=== PATIENT | male | born 1955 ===

== ENCOUNTER 2024-02-14 16:21 | Inpatient (IN) | payer SELFPAY ==
[~2024-02-14] VITALS: Ht 175.3 cm; Wt 59.0 kg
[2024-02-14 18:05] VITALS: BP 137/76; PULSE 101; TEMP 98.8
--- NOTE | 2024-02-14 18:18 | NUR ---
PATIENT ARRIVED AWAKE ALERT AND ORIENTED AT APROX 1730. PATIENT DAUGHTER AT BEDSIDE. PATIENT ADMISSION INTAKE COMPLETED WITH [facility] QA LAB TECHNICIAN. PATIENT IS CURRENTLY HERE ON A 6MONTH VISA FROM [facility] THAT EXPIRES 04/20/24. PATINET DENEIS ANY DIGNOSES, OR HISTORY OF OXYGEN REQUIREMENT. PATIENT WAS SEEN IN ER ONE MONTH AGO FOR URINARY RETENTION BUT NEVER FOLLOWED UP OUTPATIENT WITH A UROLOGIST. PATIENTS DAUGHTER IS CONCERNED BECAUSE PATIENT HAS NO INSURANCE. AND IS CURIOUS IF PATIENT CAN TRANSFER TO SHE HEARD IT WAS MORE AFFORDABLE, I INFORMED HER I AM NOT AWARE OF THAT IS A POSSIBILITY AT THIS TIME. PATIENT TRANSFERED TO ROOM [address] DR GROVES INFORMED THIS RN AND HOUSE SUPERIVOR THAT HE IS GOING TO TRY AND R/O TB. PATIENT NOW IN OUR NEGATIVE PRESSURE ROOM AT THIS TIME. HIS DAUGHTER AT BEDSIDE. CALL LIGHT WITHIN REACH.
[2024-02-14] MEDS ORDERED: *Potassium Replacement Protocol MC SCH (18:30)
[2024-02-14] MEDS ORDERED: NS 1,000 ML IV SCH (18:45)
--- NOTE | 2024-02-14 18:45 | NUR ---
PATIENTS DAUGHTER TJ WAS TOLD AT HIS LAST ER VISIT THAT HE IS DIABETIC HOWEVER PATIENT TOLD HER "I DONT NEED THAT STUFF I FEEL FINE," AND THEREFOR NEVER PICKED UP HIS PERSCRIPTIONS. PATIENT HAS NOT TAKEN ANY MEDICATIONS.
[2024-02-14 19:36] VITALS: BP 119/67; PULSE 100; TEMP 99.9
[2024-02-14 19:46] LABS: HEMATOCRIT 38.8 % (42.0-52.0); HEMOGLOBIN 13.1 g/dl (13.5-18.0); MEAN CELL VOLUME 93 fl (80.0-100.0); MEAN CORPUSCULAR HEMOGLOBIN 31 pg (27-31); MEAN CORPUSCULAR HGB CONC 34 g/dl (33.0-37.0); MEAN PLATELET VOLUME 10.6 fl (7.4-10.4); PLATELET COUNT 204 K/mm3 (130-400); RED BLOOD COUNT 4.17 M/mm3 (4.20-5.60); REDCELL DISTRIBUTION WIDTH-CV 13.3 % (11.5-14.5)
[2024-02-14 19:49] LABS: CALCIUM 8.6 mg/dL (8.4-10.2); CREATININE, serum 0.94 mg/dL (0.72-1.25); POTASSIUM 3.9 mEq/L (3.5-4.5)
--- NOTE | 2024-02-14 20:00 | NUR ---
Pt alert and oriented, vss. Daughter at bedside to assist with cares for her father. Assessed and medicated per orders, denies any pain at this time. Indwelling urinary catheter to dependent drainage, yellow clear liquid. Low fall risk. Call light in reach. Airborne precautions folowed.
[2024-02-14 20:22] VITALS: TEMP 99.1
[2024-02-14] MEDS ORDERED: Potassium Bicarbonate/Citrate 20 MEQ Effervescent TAB PO ONE (20:45)
[2024-02-14 21:00] VITALS: BP_SYST 146
[2024-02-14] MEDS ORDERED: Dextrose (Glucose) 15 GM (4 x 3.75 GM) Chewable TABLET PACK PO PRN (21:15)
[2024-02-14] MEDS ORDERED: Glucagon 1 MG VIAL IM PRN (21:15)
[2024-02-14] MEDS ORDERED: Dextrose 50% Water 25 GM/50 ML SYRINGE IV PRN (21:15)
[2024-02-14] MEDS ORDERED: Insulin Lispro (HumaLOG) SQ SCH (21:46)
[2024-02-14 23:17] VITALS: BP 146/69; PULSE 105; TEMP 99.5
[2024-02-14] MEDS ORDERED: Doxycycline Monohydrate 100 MG CAP PO SCH (23:22)
[2024-02-15] VITALS (12 sets, daily range): BP systolic 103–146; BP diastolic 62–68; PULSE 65–108; TEMP 96.8–99.3
[2024-02-15] MEDS ORDERED: Heparin 5,000 UNITS/ML 1 ML VIAL SQ SCH
[2024-02-15 07:06] LABS: BASO # 0.1 K/mm3 (0.0-0.2); BASO % 0.6 % (0.0-2.0); EOS # 0.2 K/mm3 (0.0-0.7); EOS % 2.4 % (0.0-4.0); GRAN # 5.5 K/mm3 (1.4-6.5); GRAN % 62.9 % (42.2-75.2); HEMATOCRIT 39.1 % (42.0-52.0); HEMOGLOBIN 12.9 g/dl (13.5-18.0); LYMPH # 1.9 K/mm3 (1.2-3.4); LYMPH % 21.3 % (20.0-51.0); MEAN CORPUSCULAR HEMOGLOBIN 32 pg (27-31); MEAN CORPUSCULAR HGB CONC 33 g/dl (33.0-37.0); MEAN PLATELET VOLUME 9.5 fl (7.4-10.4); MONO # 1.1 K/mm3 (0.1-0.6); MONO % 12.5 % (1.7-9.3); PLATELET COUNT 274 K/mm3 (130-400); RED BLOOD COUNT 3.99 M/mm3 (4.20-5.60); REDCELL DISTRIBUTION WIDTH-CV 13.3 % (11.5-14.5)
[2024-02-15 07:12] LABS: MEAN CELL VOLUME 98 fl (80.0-100.0)
--- NOTE | 2024-02-15 07:25 | NUR ---
PULM AND UROLOGY CONSULTS CALLED. PATIENT DAUGHTER AT BEDSIDE AND WILL BE HERE FOR THE REMAINDER OF THE DAY.
[2024-02-15] MEDS ORDERED: Insulin Lispro (HumaLOG) SQ SCH ×2 (08:00)
--- NOTE | 2024-02-15 10:19 | NUR ---
Product Management Manager met with patient's daughter, Purnima (ph#[phone]) in the hallway as patient is on airborne isolation for TB rule out. Patient does not speak israeli and only speaks Samoan. Patient's daughter does speak Bruneian. Purnima stated [place] [facility]. Patient and his , Salinas (ph#[phone]) live there with Purnima, her Tiff and their six month old baby. Patient does not have a primary care provider and does not have insurance coverage. Purnima is very concerned with the hospital bill and SW contacted Arnol, Financial Counselor to request she reach out. Purnima advised patient is normally healthy and independent with ADLS. Patient does not have DPOA-HC. Discharge Plan: Home, pending further recommendations, TB rule out
[2024-02-16] VITALS (10 sets, daily range): BP systolic 103–151; BP diastolic 58–82; PULSE 88–103; TEMP 98.4–100
[2024-02-16 06:50] LABS: BASO # 0.1 K/mm3 (0.0-0.2); BASO % 0.8 % (0.0-2.0); EOS # 0.3 K/mm3 (0.0-0.7); EOS % 4.5 % (0.0-4.0); GRAN # 4.2 K/mm3 (1.4-6.5); GRAN % 56.9 % (42.2-75.2); HEMATOCRIT 38.5 % (42.0-52.0); LYMPH # 1.7 K/mm3 (1.2-3.4); LYMPH % 23.7 % (20.0-51.0); MEAN CELL VOLUME 95 fl (80.0-100.0); MEAN CORPUSCULAR HEMOGLOBIN 32 pg (27-31); MEAN CORPUSCULAR HGB CONC 34 g/dl (33.0-37.0); MEAN PLATELET VOLUME 9.4 fl (7.4-10.4); MONO % 13.7 % (1.7-9.3); PLATELET COUNT 274 K/mm3 (130-400); RED BLOOD COUNT 4.05 M/mm3 (4.20-5.60); REDCELL DISTRIBUTION WIDTH-CV 13.1 % (11.5-14.5)
--- NOTE | 2024-02-16 07:05 | NUR ---
awake resting in bed, bedside shift report received from AWAIS webb, daughter at bedside
--- NOTE | 2024-02-16 07:25 | NUR ---
PT ALERT AND ORIENTED, DAUGHTER AT BEDSIDE. VERY PLEASANT AND COOPERATIVE, SMILES A LOT. NO PAIN, ASSESSED AND MEDICATED PER ORDERS. UP AD LISA. CALL LIGHT WITHIN REACH.
--- NOTE | 2024-02-16 08:45 | NUR ---
resting in bed, full assessment completed see interventions for further info, daughter at bedside
--- NOTE | 2024-02-16 10:11 | NUR ---
up and about in room independently, denies needs
--- NOTE | 2024-02-16 11:09 | NUR ---
Dr Daley and care team in to see patient
--- NOTE | 2024-02-16 11:46 | NUR ---
sitting up in bed and continues to deny needs, IV med infusing
--- NOTE | 2024-02-16 12:45 | NUR ---
bedside shift report given to AWAIS Puga
--- NOTE | 2024-02-16 12:59 | NUR ---
Pt. ambulating in room upon entry w/ daughter at bedside. Introduced myself and AWAIS Puga, as pt's nurses for the remainder of the shift. Performed head-to-toe assessment. All findings WNL. Pt. has no complaints of pain or further needs at this time. Call light within reach.
--- NOTE | 2024-02-16 20:30 | NUR ---
CASSANDRA Thurman assumed care of patient at 1300 from [facility]. This nurse, Cuca's preceptor, agrees with assessment and notes. Droplet precautions in place for r/o TB. Patient independent in room. Daughter at bedside to translate. Denies pain or needs during this shift. Bedside report given to oncoming nurse Stacey Cordero RN by CASSANDRA Thurman.
[2024-02-16 20:34] LABS: TB GOLD INTERPRETATION Positive (Negative)
--- NOTE | 2024-02-16 21:00 | NUR ---
UPON SHIFT ASSESSMENT, PATIENT WAS IN BED AND AXOX 4 WITH DAUGHTER BEDSIDE. PATIENT LUNG SOUNDS WERE DIMINSHED IN ALL QUADS. PATIENT DENIES CHEST PAIN, SOA OR HEMOPTYSIS. PATIENT STILL UNABLE TO PRODUCE SPUTUM SAMPLE. VS ARE WNL. TELE IS CURRENTLY NS AT 80 BPM.
[2024-02-17] VITALS (13 sets, daily range): BP systolic 119–145; BP diastolic 65–82; PULSE 02–113; TEMP 97.6–99.1
--- NOTE | 2024-02-17 02:44 | NUR ---
CALL PLACED TO [facility]PITAL[facility]. QUANTIFERON GOLD RESULTED POSITIVE. TORB TO PLACE NPO STATUS GIVEN PENDING POSSIBLE BRONCHOSCOPY WITH WASH.
--- NOTE | 2024-02-17 03:54 | NUR ---
CALL PLACED TO HOSPITALIST ROHIT. PATIENT TRENDING HYPOTENSIVE, TACHYPENIC, TACHYCARDIC AND FEBRILE 102 TEMP. PATIENT IS AXO X 4. TORB FOR TYLENOL AND IBUPROFEN GIVEN. BENADRYL ADMINISTERED FOR RASH ON BLLE.
--- NOTE | 2024-02-17 05:54 | NUR ---
PATIENT EDUCATION PROVIDED TO FAMILY MEMBER ON IMPORTANCE ON GETING ALL THOSE INCONTACT WITH PATIENT TB TESTED.
[2024-02-17 06:35] LABS: BASO # 0.1 K/mm3 (0.0-0.2); BASO % 0.9 % (0.0-2.0); EOS # 0.3 K/mm3 (0.0-0.7); EOS % 4.4 % (0.0-4.0); GRAN # 4.8 K/mm3 (1.4-6.5); GRAN % 61.5 % (42.2-75.2); HEMATOCRIT 39.6 % (42.0-52.0); HEMOGLOBIN 13.2 g/dl (13.5-18.0); LYMPH # 1.7 K/mm3 (1.2-3.4); LYMPH % 21.6 % (20.0-51.0); MEAN CELL VOLUME 97 fl (80.0-100.0); MEAN CORPUSCULAR HEMOGLOBIN 32 pg (27-31); MEAN CORPUSCULAR HGB CONC 33 g/dl (33.0-37.0); MEAN PLATELET VOLUME 9.6 fl (7.4-10.4); MONO # 0.9 K/mm3 (0.1-0.6); MONO % 11.2 % (1.7-9.3); PLATELET COUNT 291 K/mm3 (130-400); RED BLOOD COUNT 4.09 M/mm3 (4.20-5.60); REDCELL DISTRIBUTION WIDTH-CV 13.2 % (11.5-14.5)
[2024-02-17 06:40] LABS: CALCIUM 8.7 mg/dL (8.4-10.2); CREATININE, serum 0.96 mg/dL (0.72-1.25); POTASSIUM 4.1 mEq/L (3.5-4.5)
--- NOTE | 2024-02-17 09:00 | NUR ---
PATIENT IVF DISCONTONUED AND YU REMOVED. PATINET TOLERATED WELL. CALL LIGHT WITHIN REACH, PATIENTS DAUGHTER AT BEDSIDE. PATIENT AND CASEER EDUCATED THAT PATIENT IS ABLE TO EAT AND WILL BE NPO AT MIDNIGHT FOR PULM PROCEDURE TOMORROW.
--- NOTE | 2024-02-17 10:43 | NUR ---
LAB NOTIFIED PHYSICIAN PLACED 2 MORE LAB ORDERS TO PATIENT AND LAB CAN USE BLOOD DRAWN FROM AM LABS. LAB VERBALIZED UNDERSTANDING OF THIS.
[2024-02-17 12:35] LABS: HIV 1/2 Antibodies Non-Reactive; HIV-1p24 Antigen Non-Reactive
--- NOTE | 2024-02-17 16:00 | NUR ---
PATIENT HAS VOIDED MULTIPLE TIMES PER PATIENT AND HIS DAUGHTER WITH NO ISSUES.
--- NOTE | 2024-02-17 17:53 | NUR ---
CONSENT SIGNED AND ON THE CHART
--- NOTE | 2024-02-17 20:40 | NUR ---
TELE GROUT SEWER LINE REPAIRER CALLED AND STATED PT'S HR IN 140'S. I CHECKED ON PT. PT UP TO THE RESTROOM. HR RETURNED TO NORMAL UPON RETURNING TO BED.
[2024-02-18] VITALS (17 sets, daily range): BP systolic 106–126; BP diastolic 63–89; PULSE 79–104; TEMP 98.1–98.9
[2024-02-18] MEDS ORDERED: LR 1,000 ML IV SCH ×2 (01:00→05:00)
[2024-02-18 06:19] LABS: BASO # 0.1 K/mm3 (0.0-0.2); BASO % 0.8 % (0.0-2.0); EOS # 0.4 K/mm3 (0.0-0.7); EOS % 4.8 % (0.0-4.0); GRAN # 4.1 K/mm3 (1.4-6.5); GRAN % 56.1 % (42.2-75.2); HEMATOCRIT 38.7 % (42.0-52.0); HEMOGLOBIN 13.2 g/dl (13.5-18.0); LYMPH # 1.9 K/mm3 (1.2-3.4); LYMPH % 26.3 % (20.0-51.0); MEAN CELL VOLUME 93 fl (80.0-100.0); MEAN CORPUSCULAR HEMOGLOBIN 32 pg (27-31); MEAN CORPUSCULAR HGB CONC 34 g/dl (33.0-37.0); MEAN PLATELET VOLUME 9.3 fl (7.4-10.4); MONO # 0.9 K/mm3 (0.1-0.6); MONO % 11.6 % (1.7-9.3); PLATELET COUNT 289 K/mm3 (130-400); RED BLOOD COUNT 4.15 M/mm3 (4.20-5.60)
[2024-02-18 06:43] LABS: CALCIUM 8.8 mg/dL (8.4-10.2)
--- NOTE | 2024-02-18 07:19 | NUR ---
PATINET AWAKE AND ALERT, SITTING UP IN BED. PATIENTS DAUGHTER AT BEDSIDE. PATIENT DENIES ANY NEEDS COMPLAINTS OR PAIN. PATIENT STATED HE HAS VOIDED MANY TIMES OVER NIGTH WITHOUT ISSUE AND FEELS NO DISTENTION OR DISCOMFORT. PATIENTS PRE OP FLUIDS HUNG. SURGICAL CONSENT IS SIGNED AND ON THE CHART. PATIENTS CALL LIGHT WITHIN REACH
[2024-02-18] MEDS ORDERED: Lidocaine PF 1% (10 MG/ML) 5 ML VIAL ONE (08:01)
--- NOTE | 2024-02-18 08:14 | NUR ---
PATIENT TAKEN TO PRE OP
[2024-02-18] MEDS ORDERED: Lidocaine 2% Viscous 15 ML UNIT DOSE MM ONE (08:28)
[2024-02-18] MEDS ORDERED: Lidocaine PF 1% (10 MG/ML) 5 ML VIAL MM ONE (08:28)
--- NOTE | 2024-02-18 08:45 | NUR ---
PATIENT ARIVED FROM PACU AWAKE ALERT AND ORIENTED. VSS. PATIENT DENIES ANY NEEDS OR COMPLAITNS AT THIS TIME. POST OP VITALS INITIATED. PATIENTS DAUGHTER AT BEDSIDE .
[2024-02-18] MEDS ORDERED: rifAMPin 300 MG CAPSULE PO SCH (09:00)
[2024-02-18] MEDS ORDERED: Isoniazid 100 MG TAB PO SCH (09:00)
[2024-02-18] MEDS ORDERED: Pyrazinamide 500 MG TAB PO SCH (09:00)
--- NOTE | 2024-02-18 11:30 | NUR ---
TJ GIVEN NEW TB MEDICATIONS. PATIENT EDUCATION ON POSSIBLE SIDE EFFECTS BY MD AND MYSELF. PATIENT AWARE AND AGREEABLE TO TREATMENT. PATEINT STILL OCNTINUES TO HAVE GOOD URINARY OUTPUT WITH NO COMOPLAINTS. CALL LIGHT WITHIN REACH. POST OP VITALS COMPLETED.
--- NOTE | 2024-02-18 18:11 | NUR ---
Patient in room 341 from room 359. Daughter at the bedside. A&Ox4. VSS. IV CDI. Denies pain and discomfort. Airborne precautions in place. In a negative pressure room. Call light within reach
[2024-02-19] VITALS (12 sets, daily range): BP systolic 101–150; BP diastolic 55–88; PULSE 84–102; TEMP 97.5–98.3
[2024-02-19 05:00] LABS: BASO # 0.1 K/mm3 (0.0-0.2); BASO % 0.8 % (0.0-2.0); EOS # 0.3 K/mm3 (0.0-0.7); EOS % 2.9 % (0.0-4.0); GRAN % 68.8 % (42.2-75.2); HEMATOCRIT 38.9 % (42.0-52.0); HEMOGLOBIN 13.4 g/dl (13.5-18.0); LYMPH # 1.6 K/mm3 (1.2-3.4); LYMPH % 16.1 % (20.0-51.0); MEAN CELL VOLUME 93 fl (80.0-100.0); MEAN CORPUSCULAR HEMOGLOBIN 32 pg (27-31); MEAN CORPUSCULAR HGB CONC 34 g/dl (33.0-37.0); MEAN PLATELET VOLUME 9.2 fl (7.4-10.4); MONO # 1.1 K/mm3 (0.1-0.6); PLATELET COUNT 266 K/mm3 (130-400); RED BLOOD COUNT 4.19 M/mm3 (4.20-5.60); REDCELL DISTRIBUTION WIDTH-CV 13.1 % (11.5-14.5)
[2024-02-19 05:17] LABS: CALCIUM 9.2 mg/dL (8.4-10.2); CREATININE, serum 1.01 mg/dL (0.72-1.25); POTASSIUM 4.6 mEq/L (3.5-4.5)
[2024-02-19 08:46] LABS: ALBUMIN 3.9 g/dL (3.4-4.8); BILIRUBIN,TOTAL 1.6 mg/dL (0.2-1.2); TOTAL PROTEIN 8.3 g/dl (6.2-8.1)
--- NOTE | 2024-02-19 09:00 | NUR ---
Patient resting in bed, daughter at bedside. Pt, alert and oriented, denies any pain or discomfort. Pt ambulates with no difficulties to restroom and come back to bed. At RA, non productive cough. Assessment completed, meds given. No other needs at this time. Call light within reach.
[2024-02-20] VITALS (13 sets, daily range): BP systolic 112–149; BP diastolic 72–84; PULSE 84–100; TEMP 98–98.3
--- NOTE | 2024-02-20 09:00 | NUR ---
Patient is sitting up on bed, getting his breakfast. A&O x 4, Daughter at bedside. States no pain or discomfort. At RA, some sporadic cough with no production. Assessment completed, meds given. No further needs at this time. Call light within reach.
[2024-02-21] VITALS (10 sets, daily range): BP systolic 107–138; BP diastolic 70–81; PULSE 91–104; TEMP 98.2–98.4
--- NOTE | 2024-02-21 06:25 | NUR ---
ASSESSMENT COMPLETE FOR SSIS DEVELOPER. THIS MORNING WHEN I WENT IN TO GIVE PT'S HIS 0700HRS MEDS. PT'S DAUGHTER STATED HE WAS URINATING EVERY HOUR. I ASKED PT'S DAUGHTER TO ASK PT IF HE WAS HAVING PAIN OR BLEEDING WITH URINATION. PT STATED IT HURTS "INSIDE" AND "THE TIP" AND THAT HIS URINE WAS PINK SOMETIMES AND WAS RED SOMETIMES. I ASKED PT'S DAUGHTER TO ASK PT TO URINATE IN THE URINAL NEXT TIME AND SAVE IT FOR STAFF TO EVALUATE. PT DENIED CHEST PAIN, PALPITATIONS, SOB, N,V OR DIZZINESS. PT DID COMPLAIN OF SOME DIARRHEA AT TIMES WELL. WILL PASS INFORMATION ON. CALL LIGHT WITHIN REACH.
--- NOTE | 2024-02-21 07:00 | NUR ---
BEDSIDE REPORT GIVEN AT THIS TIME.
--- NOTE | 2024-02-21 09:30 | NUR ---
SHIFT ASSESSMENT COMPLETED AT THIS TIME. NO PAIN REPORTED. PT A&OX4. MORNING MEDICATIONS ADMINSISTERED AT THIS TIME. PT VOICES COMPLAINTS OF BURNING WHILE URINATING. CLEAN URINAL PROVIDED WITH UA CUP. BLADDER SCAN COMPLETED AT THIS TIME. 138MLS VISUALIZED. NO OTHER COMPLAINTS AT THIS TIME. CALL LIGHT WITHIN REACH.
[2024-02-21 10:11] LABS: ALBUMIN 4.2 g/dL (3.4-4.8); BILIRUBIN,TOTAL 2.5 mg/dL (0.2-1.2); CALCIUM 9.2 mg/dL (8.4-10.2); CREATININE, serum 1.21 mg/dL (0.72-1.25); POTASSIUM 4.6 mEq/L (3.5-4.5); TOTAL PROTEIN 9.1 g/dl (6.2-8.1)
[2024-02-21 10:48] LABS: URINE APPEARANCE CLEAR (CLEAR/HAZY); URINE BLOOD TRACE (NEGATIVE); URINE COLOR Dark Yellow (YELLOW); URINE GLUCOSE 3+ (NEGATIVE); URINE KETONE 1+ (NEGATIVE); URINE NITRATE POSITIVE (NEGATIVE); URINE PROTEIN(semi-quant) NEGATIVE (NEGATIVE); URINE UROBILINOGEN 0.2 E.U/dL (0.2-1.0)
[2024-02-21 11:29] LABS: COLLECTION METHOD CLEAN CATCH
--- NOTE | 2024-02-21 11:43 | NUR ---
URINAL PROVIDED TO MONITOR URINE OUTPUT MORE ACCURATLEY. PT VOIDS FREQUENTLY, PER DAUGHTER WHO EMPTIES PT'S URINAL, PT VOIDS LESS THAN 100ML EVERY HOUR AND VOICES CONCERNS OF PAINFUL URINATION. THIS NURSE CALLED AND UPDATED UROLOGY PA, (CLEMENTINE BROWN) AND HE STATED HE WOULD CONSULT WITH DR. GRAFF AND WOULD CALL BACK WITH AN UPDATE.
--- NOTE | 2024-02-21 13:55 | NUR ---
REPORT GIVEN TO AWAIS GRANT. PT TRANSPORTED TO ROOM 359 AT THIS TIME.
--- NOTE | 2024-02-21 14:30 | NUR ---
Pt moved to medical floor from surgical unit by bed. Report received from AWAIS Puga and CASSANDRA Lazar. Pt in negative pressure isolation room at this time. Call light within reach.
--- NOTE | 2024-02-21 15:18 | NUR ---
quarry worker was notified by interdisciplinary clinical team that patient may discharge today. Patient's nurse reports patient would need to be set up at the health department for the INH treatment for TB. DEMARCO contacted [facility] whom expressed if patient lives on [facility] then [facility] would need to provide those services. DEMARCO contacted [facility] whom explained if patient is not a solider or a beneficiary patient would not be able to get services at their facility they would need to go to [facility]. DEMARCO called [facility] again whom then expressed they dont treat for TB anymore there. DEMARCO contacted patient's daughter to determine if patient has a ID to receive the services through the [facility]. Patient's daughter reports patient lives in [place], [place]. DEMARCO explained patient would need to get medications for TB upon discharge to his home, so she will work on setting up the referral to the health department. Patient's daughter reported patient will be moving with her to [facility] in approximately a month. DEMARCO contacted the [facility] and spoke with Vivien, P# [phone]. Vivien requested information on patient. DEMARCO expressed she would fax this to her at [phone]. Vivien explained she will need discharge orders and a prescription for the medications upon discharge. Vivien explained to ensure patient knows that the health department will be calling him to set up a time to meet at his house. Vivien explained they would be bringing the patient his medication Wednesday through Wednesday at his home. DEMARCO explained patient will be moving out of state in March, Vivien explained they would arrange for him to finalize treatment out of state when that time comes. DEMARCO was notified patient will not be discharging today. DEMARCO contacted patient's daughter to obtain the full address of patient. Patient's daughter explained she was working on obtaining this information and would call the social work program coordinator back. DEMARCO contacted Vivien at the [facility] to notify that patient will not discharge today. Vivien explained she has been in contact with the daughter and is waiting for the address. DEMARCO explained if she receives it first, she will call her. DEMARCO faxed the requested information to Vivien at the [facility]. DEMARCO will continue to follow patient's care. If patient does not need the INH treatment, SW will call [facility] health department to cancel. Discharge plan: Home
[2024-02-22] VITALS (12 sets, daily range): BP systolic 106–144; BP diastolic 66–84; PULSE 88–102; TEMP 97.7–99.6
[2024-02-22 06:08] LABS: BASO # 0.1 K/mm3 (0.0-0.2); BASO % 0.9 % (0.0-2.0); EOS # 0.2 K/mm3 (0.0-0.7); GRAN # 3.9 K/mm3 (1.4-6.5); HEMATOCRIT 39.3 % (42.0-52.0); HEMOGLOBIN 13.4 g/dl (13.5-18.0); LYMPH # 1.8 K/mm3 (1.2-3.4); LYMPH % 25.4 % (20.0-51.0); MEAN CELL VOLUME 92 fl (80.0-100.0); MEAN CORPUSCULAR HEMOGLOBIN 32 pg (27-31); MEAN CORPUSCULAR HGB CONC 34 g/dl (33.0-37.0); MEAN PLATELET VOLUME 9.2 fl (7.4-10.4); MONO % 13.8 % (1.7-9.3); PLATELET COUNT 312 K/mm3 (130-400); RED BLOOD COUNT 4.26 M/mm3 (4.20-5.60); REDCELL DISTRIBUTION WIDTH-CV 13.2 % (11.5-14.5)
[2024-02-22 06:22] LABS: CALCIUM 9.3 mg/dL (8.4-10.2); CREATININE, serum 0.99 mg/dL (0.72-1.25); POTASSIUM 4.6 mEq/L (3.5-4.5)
--- NOTE | 2024-02-22 09:15 | NUR ---
PATIENT ALERT AND ORIENTED X3. PATIENT DENIES PAIN AT THIS TIME. PATIENT ON AIRBORNE PRECAUTIONS, ON ROOM AIR SITTING IN BED. PATIENT SHIFT ASSESSMENT COMPLETED AND MORNING MEDICATION GIVEN PER DOTORS ORDERS. PATIENT HAS NO IV ACCESS AND ALSO NOTHING THAT HE TAKES IV. PATIENT CALL LIGHT WITHIN REACH.BED AT LOWEST POSITION.
[2024-02-22 10:57] LABS: ALBUMIN 4.2 g/dL (3.4-4.8); BILIRUBIN,TOTAL 1.8 mg/dL (0.2-1.2); CALCIUM 9.9 mg/dL (8.4-10.2); CREATININE, serum 1.1 mg/dL (0.72-1.25); POTASSIUM 4.4 mEq/L (3.5-4.5); TOTAL PROTEIN 8.5 g/dl (6.2-8.1)
[2024-02-22 14:11] LABS: .HISTOPLASMA ANTIGEN SERUM Negative (())
[2024-02-22] MEDS ORDERED: VITAMIN B-6100 MG PO (16:00)
[2024-02-22] MEDS ORDERED: RIFADIN300 MG PO (16:00)
[2024-02-22] MEDS ORDERED: PYRAZINAMIDE 5500 MG PO (16:00)
[2024-02-22] MEDS ORDERED: ETHAMBUTOL HYD400 MG PO (16:00)
[2024-02-22] MEDS ORDERED: FLOMAX 0.40.4 MG/CAP PO (16:00)
[2024-02-22] MEDS ORDERED: ISONIAZID100 MG PO (16:00)
--- NOTE | 2024-02-22 17:05 | NUR ---
PATIENT DENIES PAIN, PATIENT DAUGHTER VERBALIZES PATIENT DOES NOT WANT TO HAVE THE CT GUIDED LUNG BIOPSY AND RATHER GET MEDICATION TREATMENT. CALL LIGHT WITHIN REACH.
--- NOTE | 2024-02-22 21:30 | NUR ---
Patient resting in bed with daughter at bedside. Denies any pain or needs. Assessment complete. No IV access. Call light and personal items in reach. Bed in low position.
[2024-02-23] VITALS (12 sets, daily range): BP systolic 126–147; BP diastolic 66–79; PULSE 90–100; TEMP 98–98.8
[2024-02-23 05:36] LABS: BLASTOMYCES AB Negative (Negative)
[2024-02-23 08:14] LABS: BASO # 0.1 K/mm3 (0.0-0.2); BASO % 0.8 % (0.0-2.0); EOS # 0.1 K/mm3 (0.0-0.7); EOS % 2.3 % (0.0-4.0); GRAN # 3.5 K/mm3 (1.4-6.5); GRAN % 58.2 % (42.2-75.2); HEMATOCRIT 38.8 % (42.0-52.0); HEMOGLOBIN 13.3 g/dl (13.5-18.0); LYMPH # 1.5 K/mm3 (1.2-3.4); LYMPH % 24.8 % (20.0-51.0); MEAN CELL VOLUME 94 fl (80.0-100.0); MEAN CORPUSCULAR HEMOGLOBIN 32 pg (27-31); MEAN CORPUSCULAR HGB CONC 34 g/dl (33.0-37.0); MEAN PLATELET VOLUME 9.5 fl (7.4-10.4); MONO # 0.8 K/mm3 (0.1-0.6); MONO % 13.2 % (1.7-9.3); PLATELET COUNT 353 K/mm3 (130-400); RED BLOOD COUNT 4.11 M/mm3 (4.20-5.60); REDCELL DISTRIBUTION WIDTH-CV 13.3 % (11.5-14.5)
[2024-02-23 08:28] LABS: ALBUMIN 4.2 g/dL (3.4-4.8); BILIRUBIN,TOTAL 1.6 mg/dL (0.2-1.2); CALCIUM 9.2 mg/dL (8.4-10.2); CREATININE, serum 0.96 mg/dL (0.72-1.25); POTASSIUM 4.6 mEq/L (3.5-4.5); TOTAL PROTEIN 8.6 g/dl (6.2-8.1)
--- NOTE | 2024-02-23 10:15 | NUR ---
patient alert and orientedx4. daughter at bedside. patient denies soa, chest pain, urinary urgency or difficulties. patient voiding yellow urine. patient on room air, remains in airborne isolation. patient shift assessment completed. call light within reach. bed at lowest position.
--- NOTE | 2024-02-23 15:17 | NUR ---
DEMARCO called Vivien at [facility] ([phone]) to discuss possible discharge for patient in near future. She stated she needs the following information for update: patient's address, prescriptions for one month supply, chest xray, CT report, AFB smear resutls, ID ntoes, HIV results. Updated clinicals faxed to Vivien at [phone]. DEMARCO called patient's daughter Purnima ([phone]) who provided that patient's address is [facility] [place] [address] [address]. She stated if patient discharges from hospital that she will be at patient's home on Wednesday. Discharge plan: Home
--- NOTE | 2024-02-23 20:00 | NUR ---
UPON SHIFT ASSESSMENT, PATIENT WAS IN BED WITH DAUGHTER BEDSIDE. LUNG SOUNDS ARE DIMISHED IN ALL QUADRANTS. VS ARE WNL AND PATIENT'S AFFECT APPEARS CHEERFUL. NO IV ACCESS IS NOTED AND NOTES STATE THAT THIS IS PER PATIENT REQUEST. PATIENT DENIES PAIN OR NEEDS. CALL LIGHT WITHIN REACH.
[2024-02-24] VITALS (8 sets, daily range): BP systolic 116–140; BP diastolic 62–72; PULSE 92–97; TEMP 97.8–98.3
--- NOTE | 2024-02-24 02:00 | NUR ---
ROUNDED ON PATIENT-AWAKE IN BED WATCHING POD CAST ON TABLET. DAUGHTER TRANSLATES AND PATIENT DENIES PAIN AND SOA. STATES NO NEEDS AT THIS TIME.
--- NOTE | 2024-02-24 07:44 | NUR ---
Bedside report received from AWAIS Ibarra. Pt resting in bed in negative pressure isolation room with no complaints. call light within reach.
--- NOTE | 2024-02-24 08:52 | NUR ---
Pt awake in room eating breakfast on side of bed. Daughter at bedside to assist with translation per pt request. Shift assessment completed. VSS. Pt denies pain rating 0/10. Negative pressure isolation room maintained and airborne precautions in place. Pt ambulates in room independently with no complications. Pt has no request at this time. Call light within reach.
[2024-02-24 10:41] LABS: ALBUMIN 4.2 g/dL (3.4-4.8); BILIRUBIN,TOTAL 1.6 mg/dL (0.2-1.2); CALCIUM 9.8 mg/dL (8.4-10.2); CREATININE, serum 1.1 mg/dL (0.72-1.25); POTASSIUM 4.9 mEq/L (3.5-4.5); TOTAL PROTEIN 8.2 g/dl (6.2-8.1)
[2024-02-24] MEDS ORDERED: ISONIAZID100 MG PO (11:32)
[2024-02-24] MEDS ORDERED: ETHAMBUTOL HYD400 MG PO (11:32)
[2024-02-24] MEDS ORDERED: FLOMAX 0.40.4 MG/CAP PO (11:33)
[2024-02-24] MEDS ORDERED: VITAMIN B-6100 MG PO (11:33)
[2024-02-24] MEDS ORDERED: RIFADIN300 MG PO (11:33)
[2024-02-24] MEDS ORDERED: PYRAZINAMIDE 5500 MG PO (11:33)
[2024-02-24] MEDS ORDERED: GLUCOPHAGE500 MG/TAB PO (11:34)
--- NOTE | 2024-02-24 15:46 | NUR ---
Discharge instructions provided to pt and pt daughter. Pt daughter verbalized understanding of discharge paperwork. Copies of prescriptions sent with pt placed on pt chart. Pt leaving facility with daughter back to home.
--- NOTE | 2024-02-24 15:50 | NUR ---
Jack Spinner faxed discharge orders and medications to Vivien at the [facility]. Vivien advised they will fill patient's TB medications and deliver them to the home. Vivien stated they visit daily M-F to ensure compliance with medications. Vivien advised patient will see their ID provider monthly and that they can assist patient in establishing primary care. Vivien has been in contact with patient's daughter on the above udpates. SW contacted patient's daughter who confirmed she understood the plan. Discharge Plan; Home with close Health Dept follow up
== END 2024-02-24 16:05 | disposition home or self-care (01) | DRG 193 ==
LOC: MEDICAL 16:21 → SURG 02-18 15:34 → MEDICAL 02-21 14:30
PROVIDERS: Internal Medicine; Physician Assistant; ADMIT Internal Medicine
DX: J18.9 Pneumonia, unspecified organism (principal); J96.01 Acute respiratory failure with hypoxia; A15.9 Respiratory tuberculosis unspecified; E87.1 Hypo-osmolality and hyponatremia; R33.9 Retention of urine, unspecified; N40.0 Benign prostatic hyperplasia without lower urinary tract symptoms; E11.9 Type 2 diabetes mellitus without complications; Z79.4 Long term (current) use of insulin
CPT/HCPCS: J1644; J1815; J2543; J2704; J7030; J7120; Q3014